=== PATIENT | female | born 1975 | race Caucasian/White ===

== ENCOUNTER 2019-10-25 00:16 | Inpatient (IN) | payer MEDICAID, OTHER, SELFPAY ==
[~2019-10-25] VITALS: Ht 157.5 cm; Wt 58.2 kg
[2019-10-25] VITALS (9 sets, daily range): BP systolic 94–114; BP diastolic 49–68
[2019-10-25] MEDS ORDERED: SODIUM CHLORIDE 0.9% 1,000 ML IV ONE (00:26)
[2019-10-25] MEDS ORDERED: SODIUM CHLORIDE FLUSH 10ML SYR IVF ONE (00:30)
[2019-10-25] MEDS ORDERED: MAGNESIUM SULFATE 1 GM, THIAMINE 100 MG, FOLIC ACID 1 MG, MVI ADULT 10 ML in SODIUM CHL... IV ONE (00:30)
--- NOTE | 2019-10-25 00:37 | NUR ---
BROUGHT IN BY AMBULANCE TRANSFER FROM [facility] C/O UNABLE TO AMBULATE X 2 DAYS DUE TO WEAKNESS. ALSO C/O VAGINAL BLEEDING X 5 MONTHS. HX OF CIRRHOSIS DUE TO ETOH ABUSE. LAST DRINK 1400. DENIES SOB /COUGH. + JAUNDICE. ALERT AND ORIENTED.
--- NOTE | 2019-10-25 00:37 | NUR ---
SEEN AND EXAMINED BY ERP. EKG AND CHEST XRAY DONE. PATIENT RECEIVED 40 PROTONIX 100 MG THIAMINE 5 MG COMPAZINE 1 MG ATIVAN 4 MG ZOFRAN 1 GM ROCEPHIN 2 LITERS OF D5NS 1.6 L NS +250 NS ENROUTE
--- NOTE | 2019-10-25 00:38 | NUR ---
BLOOD AND BLOOD CULTURE X 2 DRAWN BY STAIN MAKER.
--- NOTE | 2019-10-25 00:46 | NUR ---
1 GRAM CALCIUM GIVEN ENROUTE
--- NOTE | 2019-10-25 00:49 | NUR ---
PT SHIVAM [phone]
[2019-10-25 01:01] LABS: MICROSCOPIC INDICATED
[2019-10-25 01:05] LABS: MEAN CORPUSCULAR HEMOGLOBIN 35.9 pg (27.0-34.8); MEAN CORPUSCULAR HGB CONC 33.1 g/dL (32.4-35.8); MEAN PLATELET VOLUME 8.6 fL (7.4-10.4); PLATELET COUNT 53 x10^3/uL (130-400); RED BLOOD COUNT 2.54 x10^6/uL (3.82-5.3); RED CELL DISTRIBUTION WIDTH 19.8 % (9.6-15.2)
[2019-10-25 01:08] LABS: INTERNATIONAL NORMALIZED RATIO 2.15 (0.93-1.1); PROTHROMBIN TIME 22.3 Seconds (9.6-11.5)
[2019-10-25 01:10] LABS: ALANINE AMINOTRANSFERASE 78 U/L (12-78); ALBUMIN 2.3 g/dL (3.4-5.0); ANION GAP 19 mmol/L (5-15); CALCIUM 6.7 mg/dL (8.5-10.1); CHLORIDE 98 mmol/L (98-107)
[2019-10-25 01:22] LABS: ALKALINE PHOSPHATASE 139 U/L (45-117)
[2019-10-25 01:26] LABS: CREATININE 1.08 mg/dL (0.55-1.02)
[2019-10-25 01:28] LABS: BILIRUBIN,TOTAL 25.8 mg/dL (0.2-1.0); TOTAL PROTEIN 5.9 g/dL (6.4-8.2)
[2019-10-25] MEDS ORDERED: LORazepam 2 MG/ML, 1ML ONE (01:44)
[2019-10-25] MEDS ORDERED: PIPERACILLIN/TAZO/PMX 3.375GM 50 ML ONE (01:44)
[2019-10-25] MEDS ORDERED: LACTULOSE 3.3 GM/5 ML ORAL.SOL RC ONE (02:00)
[2019-10-25] MEDS ORDERED: VANCOMYCIN 1,600 MG in SODIUM CHLORIDE 0.9% 250 ML IV ONE (02:00)
[2019-10-25] MEDS ORDERED: LORazepam 2 MG/ML, 1ML IVPush ONE (02:00)
[2019-10-25] MEDS ORDERED: PIPERACILLIN/TAZO/PMX 3.375GM 50 ML IVPB ONE (02:00)
[2019-10-25] MEDS ORDERED: POTASSIUM CHLORIDE 40 MEQ in SODIUM CHLORIDE 0.9% 500 ML IV ONE ×2 (02:00→07:00)
[2019-10-25] MEDS ORDERED: VANCOMYCIN PER PHARMACY MC ONE (02:00)
[2019-10-25 02:05] LABS: BASOPHILS % (AUTO) 0 % (0-1); EOSINOPHILS % (AUTO) 0 % (1-7); LYMPHOCYTES # (AUTO) 0.13 x10^3/uL (1-3.4); LYMPHOCYTES % (AUTO) 2 % (22-44); MD SCAN; MONOCYTES # (AUTO) 0.77 x10^3/uL (0.2-0.8); MONOCYTES % (AUTO) 10 % (2-9); NEUTROPHILS % (AUTO) 89 % (42-75)
--- NOTE | 2019-10-25 02:08 | NUR ---
PATIENT TO CT SCAN.
--- NOTE | 2019-10-25 03:30 | NUR ---
LACTULOSE GIVEN RECTALLY VIA ENEMA. NO DIARRHEA.
--- NOTE | 2019-10-25 03:45 | NUR ---
DR. YOUNG AT BEDSIDE FOR PATIENT EVALUATION.
[2019-10-25] MEDS: SODIUM CHLORIDE 0.9% 1,000 ML IV SCH ×3 (04:00→20:00)
[2019-10-25] MEDS ORDERED: PHARMACY MAY ADJ FOR RENAL FX MC PRN (04:00)
[2019-10-25] MEDS: PIPERACILLIN/TAZO/PMX 3.375GM 50 ML IV SCH ×4 (04:00→22:12)
[2019-10-25] MEDS ORDERED: VANCOMYCIN PER PHARMACY MC PRN (04:00)
[2019-10-25] MEDS ORDERED: PHARMACOKINETIC MONITORING MC PRN (06:00)
[2019-10-25 06:11] LABS: CHLORIDE 102 mmol/L (98-107)
[2019-10-25 06:23] LABS: ANION GAP 16 mmol/L (5-15); CALCIUM 6.7 mg/dL (8.5-10.1)
[2019-10-25] MEDS ORDERED: CALCIUM GLUCONATE 9.2 MEQ in SODIUM CHLORIDE 0.9% 100 ML IV ONE (07:00)
[2019-10-25] MEDS ORDERED: MAGNESIUM SULFATE PMX 2GM/50ML 50 ML IV ONE (07:00)
[2019-10-25] MEDS ORDERED: PANTOPRAZOLE 40 MG IV IVPush SCH (07:30)
[2019-10-25] MEDS ORDERED: PHENOBARBITAL ETOH DETOX PER PHARMACY MC PRN (07:30)
[2019-10-25 07:45] LABS: HCG UR SG > 1.045 (1.003-1.030)
[2019-10-25] MEDS ORDERED: LORazepam 0.5MG TABLET PO PRN (08:00)
[2019-10-25] MEDS ORDERED: LORazepam 1MG TABLET PO PRN ×3 (08:00)
[2019-10-25] MEDS ORDERED: PHYTONADIONE 5 MG TABLET PO ONE (08:00)
[2019-10-25] MEDS ORDERED: LORazepam 2 MG/ML, 1ML IV PRN ×5 (08:00)
[2019-10-25 08:02] LABS: AMPHETAMINE SCREEN, URINE Negative (Negative); BARBITURATE SCREEN, URINE Negative (Negative); BENZODIAZEPINE SCREEN, URINE Negative (Negative); CANNABINOID SCREEN, URINE Negative (Negative); COCAINE SCREEN, URINE Negative (Negative); METHADONE SCREEN, URINE Negative (Negative); OPIATE SCREEN, URINE Negative (Negative)
[2019-10-25] MEDS: DIAZEPAM 10 MG TABLET PO SCH ×3 (09:27→20:34)
[2019-10-25] MEDS: LACTULOSE 10 GM/15 ML UDC PO SCH ×3 (09:27→20:35)
[2019-10-25] MEDS: PROPRANOLOL 10 MG TABLET PO SCH ×5 (09:29→23:00)
[2019-10-25] MEDS ORDERED: LIDOCAINE 1%, 10ML ONE (10:12)
[2019-10-25] MEDS ORDERED: POTASSIUM PHOSPHATE 44 MEQ in SODIUM CHLORIDE 0.9% 500 ML IV ONE (12:30)
[2019-10-25] MEDS ORDERED: ALBUMIN HUMAN 25% 100 ML IV ONE ×2 (12:30→13:30)
[2019-10-25 12:56] LABS: CELLS COUNTED 15
[2019-10-25] MEDS ORDERED: VANCOMYCIN 1,300 MG in SODIUM CHLORIDE 0.9% 250 ML IV SCH (14:00)
[2019-10-25] MEDS: LORazepam 1MG TABLET PO PRN (16:21)
[2019-10-25] MEDS: PANTOPRAZOLE 40 MG IV IVPush SCH (20:34)
[2019-10-26] MEDS: DIAZEPAM 10 MG TABLET PO SCH (02:58)
[2019-10-26 04:25] VITALS: BP 90/63
[2019-10-26 04:52] LABS: ANION GAP 8 mmol/L (5-15); CALCIUM 6.8 mg/dL (8.5-10.1); CHLORIDE 113 mmol/L (98-107); INTERNATIONAL NORMALIZED RATIO 2.48 (0.93-1.1); PROTHROMBIN TIME 25.8 Seconds (9.6-11.5)
[2019-10-26 05:04] LABS: ALANINE AMINOTRANSFERASE 59 U/L (12-78); ALKALINE PHOSPHATASE 86 U/L (45-117)
[2019-10-26 05:09] LABS: CREATININE 0.89 mg/dL (0.55-1.02); TOTAL PROTEIN 5.1 g/dL (6.4-8.2)
[2019-10-26 05:10] LABS: BILIRUBIN,TOTAL 31.6 mg/dL (0.2-1.0)
[2019-10-26] MEDS: PIPERACILLIN/TAZO/PMX 3.375GM 50 ML IV SCH (05:20)
[2019-10-26 05:31] LABS: MEAN CORPUSCULAR HEMOGLOBIN 33.8 pg (27.0-34.8); MEAN CORPUSCULAR HGB CONC 33.8 g/dL (32.4-35.8); MEAN PLATELET VOLUME 9.2 fL (7.4-10.4); RED BLOOD COUNT 3.13 x10^6/uL (3.82-5.3); RED CELL DISTRIBUTION WIDTH 21.5 % (9.6-15.2)
[2019-10-26 05:47] LABS: PLATELET COUNT 42 x10^3/uL (130-400)
[2019-10-26 06:00] LABS: MD YES
[2019-10-26 06:03] LABS: <PLATELET ESTIMATE> DECREASED; <PLT MORPHOLOGY> NORMAL PLT MORPH; ANISOCYTOSIS 1+; BAND#(MANUAL) 0.07 x10^3/uL; BANDS%(MANUAL) 1 % (0-7); EOS#(MANUAL) 0.07 x10^3/uL (0.0-0.4); EOS% (MANUAL) 1 % (1-7); LYMPH#(MANUAL) 0.26 x10^3/uL (1-3.4); LYMPHS% (MANUAL) 4 % (22-44); MONOS#(MANUAL) 0.46 x10^3/uL (0.3-2.7); MONOS% (MANUAL) 7 % (2-9); POLYCHROMASIA 1+; SEG#(MANUAL) 5.66 x10^3/uL (1.8-6.8); SEGS% (MANUAL) 87 % (42-75); TEAR DROPS 1+
[2019-10-26] MEDS: SODIUM CHLORIDE 0.9% 1,000 ML IV SCH (06:14)
[2019-10-26] MEDS: PROPRANOLOL 10 MG TABLET PO SCH ×3 (06:14→20:20)
[2019-10-26] MEDS ORDERED: POTASSIUM PHOSPHATE 44 MEQ in SODIUM CHLORIDE 0.9% 500 ML IV ONE (06:30)
[2019-10-26] MEDS ORDERED: POTASSIUM CHLORIDE 20 MEQ TAB.ER.PRT PO ONE (06:30)
[2019-10-26] MEDS ORDERED: CALCIUM GLUCONATE 9.2 MEQ in SODIUM CHLORIDE 0.9% 100 ML IV ONE (06:30)
[2019-10-26] MEDS: LACTULOSE 10 GM/15 ML UDC PO SCH ×3 (08:36→20:21)
[2019-10-26] MEDS: PANTOPRAZOLE 40 MG IV IVPush SCH ×2 (08:36→20:20)
[2019-10-26] MEDS: DIAZEPAM 5 MG TABLET PO SCH ×3 (08:36→20:20)
[2019-10-26] MEDS: CEFTRIAXONE PMX 1GM/50ML 50 ML IV SCH (12:04)
[2019-10-26] MEDS: PHYTONADIONE 5 MG TABLET PO SCH (12:26)
[2019-10-26 16:30] VITALS: BP 103/68
[2019-10-26] MEDS: PROMETHAZINE 25 MG/ML, 1ML IM PRN (16:59)
[2019-10-26 19:25] VITALS: BP 90/63
[2019-10-27 03:30] VITALS: BP 93/52
[2019-10-27] MEDS: DIAZEPAM 5 MG TABLET PO SCH ×4 (03:51→20:14)
[2019-10-27 05:38] LABS: MEAN CORPUSCULAR HEMOGLOBIN 33.9 pg (27.0-34.8); MEAN CORPUSCULAR HGB CONC 33.8 g/dL (32.4-35.8); MEAN PLATELET VOLUME 9.6 fL (7.4-10.4); PLATELET COUNT 62 x10^3/uL (130-400); RED BLOOD COUNT 3.24 x10^6/uL (3.82-5.3); RED CELL DISTRIBUTION WIDTH 22.5 % (9.6-15.2)
[2019-10-27 05:41] LABS: INTERNATIONAL NORMALIZED RATIO 2.46 (0.93-1.1); PROTHROMBIN TIME 25.6 Seconds (9.6-11.5)
[2019-10-27 05:59] LABS: ALANINE AMINOTRANSFERASE 60 U/L (12-78); ALBUMIN 2.7 g/dL (3.4-5.0); ANION GAP 9 mmol/L (5-15); CALCIUM 7.6 mg/dL (8.5-10.1); CHLORIDE 113 mmol/L (98-107)
[2019-10-27 06:11] LABS: ALKALINE PHOSPHATASE 103 U/L (45-117)
[2019-10-27 06:14] LABS: BASOPHILS % (AUTO) 0 % (0-1); EOSINOPHILS # (AUTO) 0.19 x10^3/uL (0-0.4); EOSINOPHILS % (AUTO) 3 % (1-7); LYMPHOCYTES # (AUTO) 0.53 x10^3/uL (1-3.4); LYMPHOCYTES % (AUTO) 8 % (22-44); MD SCAN; MONOCYTES # (AUTO) 0.87 x10^3/uL (0.2-0.8); MONOCYTES % (AUTO) 12 % (2-9); NEUTROPHILS # (AUTO) 5.39 x10^3/uL (1.8-6.8); NEUTROPHILS % (AUTO) 77 % (42-75)
[2019-10-27 06:15] LABS: CREATININE 1.04 mg/dL (0.55-1.02)
[2019-10-27 06:17] LABS: BILIRUBIN,TOTAL 34.7 mg/dL (0.2-1.0)
[2019-10-27] MEDS ORDERED: POTASSIUM PHOSPHATE 44 MEQ in SODIUM CHLORIDE 0.9% 500 ML IV ONE (06:30)
[2019-10-27] MEDS ORDERED: POTASSIUM CHLORIDE 20 MEQ TAB.ER.PRT PO ONE (06:30)
[2019-10-27 06:57] VITALS: BP 108/75
[2019-10-27] MEDS ORDERED: ALBUMIN HUMAN 25% 100 ML IV ONE (08:00)
[2019-10-27] MEDS: PHYTONADIONE 5 MG TABLET PO SCH (08:59)
[2019-10-27] MEDS: PANTOPRAZOLE 40 MG IV IVPush SCH ×2 (08:59→20:14)
[2019-10-27] MEDS: LACTULOSE 10 GM/15 ML UDC PO SCH ×3 (09:00→20:14)
[2019-10-27] MEDS ORDERED: LIDOCAINE 1%, 10ML ONE (09:06)
[2019-10-27] MEDS: CEFTRIAXONE PMX 1GM/50ML 50 ML IV SCH (11:30)
[2019-10-27] MEDS ORDERED: MEDROXYPROGESTERONE ACETATE 150 MG/ML IM ONE (12:00)
[2019-10-27] MEDS: SPIRONOLACTONE 50 MG TABLET PO SCH ×2 (12:39→20:14)
[2019-10-27] MEDS: FUROSEMIDE 40 MG TABLET PO SCH (12:39)
[2019-10-27 12:57] VITALS: BP 112/76
[2019-10-27 20:58] VITALS: BP 97/65
[2019-10-28 00:07] VITALS: BP 100/62
[2019-10-28] MEDS: DIAZEPAM 5 MG TABLET PO SCH (02:00)
[2019-10-28 04:58] LABS: ALBUMIN 2.8 g/dL (3.4-5.0); ANION GAP 11 mmol/L (5-15); CALCIUM 7.6 mg/dL (8.5-10.1); CHLORIDE 112 mmol/L (98-107)
[2019-10-28 05:13] LABS: ALANINE AMINOTRANSFERASE 47 U/L (12-78); ALKALINE PHOSPHATASE 89 U/L (45-117)
[2019-10-28 05:14] LABS: CREATININE 1.12 mg/dL (0.55-1.02)
[2019-10-28 05:15] LABS: TOTAL PROTEIN 4.8 g/dL (6.4-8.2)
[2019-10-28 05:16] LABS: BILIRUBIN,TOTAL 32.8 mg/dL (0.2-1.0)
[2019-10-28] MEDS: LORazepam 1MG TABLET PO PRN ×2 (06:15→12:17)
[2019-10-28] MEDS ORDERED: POTASSIUM PHOSPHATE 22 MEQ in SODIUM CHLORIDE 0.9% 500 ML IV ONE (06:30)
[2019-10-28] MEDS ORDERED: POTASSIUM CHLORIDE 20 MEQ TAB.ER.PRT PO ONE (06:30)
[2019-10-28 06:52] VITALS: BP 93/61
[2019-10-28] MEDS: LACTULOSE 10 GM/15 ML UDC PO SCH ×3 (07:23→20:49)
[2019-10-28] MEDS: SPIRONOLACTONE 50 MG TABLET PO SCH ×2 (07:24→20:49)
[2019-10-28 07:34] LABS: BASOPHILS # (AUTO) 0.03 x10^3/uL (0-0.1); BASOPHILS % (AUTO) 0 % (0-1); EOSINOPHILS # (AUTO) 0.16 x10^3/uL (0-0.4); EOSINOPHILS % (AUTO) 2 % (1-7); LYMPHOCYTES # (AUTO) 0.72 x10^3/uL (1-3.4); LYMPHOCYTES % (AUTO) 10 % (22-44); MD SCAN; MEAN CORPUSCULAR HEMOGLOBIN 34.6 pg (27.0-34.8); MEAN CORPUSCULAR HGB CONC 33.9 g/dL (32.4-35.8); MEAN PLATELET VOLUME 9.4 fL (7.4-10.4); MONOCYTES # (AUTO) 1.12 x10^3/uL (0.2-0.8); MONOCYTES % (AUTO) 16 % (2-9); NEUTROPHILS # (AUTO) 4.93 x10^3/uL (1.8-6.8); NEUTROPHILS % (AUTO) 71 % (42-75); PLATELET COUNT 72 x10^3/uL (130-400); RED BLOOD COUNT 3.33 x10^6/uL (3.82-5.3); RED CELL DISTRIBUTION WIDTH 22.4 % (9.6-15.2)
[2019-10-28] MEDS: PANTOPRAZOLE 40 MG IV IVPush SCH ×2 (07:59→20:56)
[2019-10-28] MEDS: PHYTONADIONE 5 MG TABLET PO SCH (07:59)
[2019-10-28] MEDS: FUROSEMIDE 40 MG TABLET PO SCH (07:59)
[2019-10-28] MEDS: CEFTRIAXONE PMX 1GM/50ML 50 ML IV SCH (12:06)
[2019-10-28 12:54] VITALS: BP 96/68
--- NOTE | 2019-10-28 19:13 | NUR ---
RAIMUNDO MCKEON Fall Risk Medications present and NOT receiving anticoagulants. Signed: 10/28/19 at 1916 by Prasanna BUTLER
[2019-10-28 19:30] VITALS: BP 120/76
[2019-10-28 20:39] VITALS: BP 102/66
[2019-10-29 02:30] VITALS: BP 98/64
[2019-10-29 04:56] LABS: ALBUMIN 2.6 g/dL (3.4-5.0); ANION GAP 11 mmol/L (5-15); CALCIUM 7.8 mg/dL (8.5-10.1); CHLORIDE 109 mmol/L (98-107)
[2019-10-29 04:58] LABS: INTERNATIONAL NORMALIZED RATIO 2.19 (0.93-1.1); PROTHROMBIN TIME 22.7 Seconds (9.6-11.5)
[2019-10-29 05:07] LABS: ALANINE AMINOTRANSFERASE 42 U/L (12-78); ALKALINE PHOSPHATASE 92 U/L (45-117)
[2019-10-29 05:09] LABS: CREATININE 1.22 mg/dL (0.55-1.02); TOTAL PROTEIN 4.7 g/dL (6.4-8.2)
[2019-10-29 05:12] LABS: BILIRUBIN,TOTAL 34.1 mg/dL (0.2-1.0)
[2019-10-29 07:05] VITALS: BP 96/52
[2019-10-29 10:18] VITALS: BP 105/70
[2019-10-29] MEDS: SPIRONOLACTONE 50 MG TABLET PO SCH ×2 (10:18→22:44)
[2019-10-29] MEDS: POTASSIUM CHLORIDE 20 MEQ TAB.ER.PRT PO SCH ×3 (10:19→22:44)
[2019-10-29] MEDS: LACTULOSE 10 GM/15 ML UDC PO SCH ×3 (10:19→22:44)
[2019-10-29] MEDS: PHYTONADIONE 5 MG TABLET PO SCH (10:19)
[2019-10-29] MEDS: FUROSEMIDE 40 MG TABLET PO SCH (10:20)
[2019-10-29] MEDS: PANTOPRAZOLE 40 MG IV IVPush SCH ×3 (10:20→22:44)
[2019-10-29] MEDS: CEFTRIAXONE PMX 1GM/50ML 50 ML IV SCH ×2 (10:41→13:30)
[2019-10-29 13:50] VITALS: BP 123/71
[2019-10-29] MEDS: LORazepam 1MG TABLET PO PRN (18:31)
[2019-10-29 20:25] VITALS: BP 103/67
[2019-10-30 01:52] VITALS: BP 100/57
[2019-10-30 05:22] LABS: CHLORIDE 105 mmol/L (98-107)
[2019-10-30 05:29] LABS: MEAN CORPUSCULAR HEMOGLOBIN 35.8 pg (27.0-34.8); MEAN CORPUSCULAR HGB CONC 34.6 g/dL (32.4-35.8); RED CELL DISTRIBUTION WIDTH 23.6 % (9.6-15.2)
[2019-10-30 05:39] LABS: ALANINE AMINOTRANSFERASE 40 U/L (12-78); ALBUMIN 2.4 g/dL (3.4-5.0); ALKALINE PHOSPHATASE 96 U/L (45-117); ANION GAP 11 mmol/L (5-15); CALCIUM 7.9 mg/dL (8.5-10.1)
[2019-10-30 05:42] LABS: CREATININE 1.38 mg/dL (0.55-1.02); TOTAL PROTEIN 4.7 g/dL (6.4-8.2)
[2019-10-30 05:44] LABS: BILIRUBIN,TOTAL 33.1 mg/dL (0.2-1.0)
[2019-10-30 05:59] LABS: MD YES; MEAN PLATELET VOLUME 8.9 fL (7.4-10.4); PLATELET COUNT 75 x10^3/uL (130-400)
[2019-10-30 06:06] LABS: ANISOCYTOSIS 1+; BAND#(MANUAL) 0.13 x10^3/uL; BANDS%(MANUAL) 2 % (0-7); EOS#(MANUAL) 0.06 x10^3/uL (0.0-0.4); EOS% (MANUAL) 1 % (1-7); LYMPH#(MANUAL) 0.69 x10^3/uL (1-3.4); LYMPHS% (MANUAL) 11 % (22-44); MONOS#(MANUAL) 1.13 x10^3/uL (0.3-2.7); MONOS% (MANUAL) 18 % (2-9); SEG#(MANUAL) 4.28 x10^3/uL (1.8-6.8); SEGS% (MANUAL) 68 % (42-75)
[2019-10-30 06:07] LABS: <PLATELET ESTIMATE> DECREASED; <PLT MORPHOLOGY> NORMAL PLT MORPH; POLYCHROMASIA 1+
[2019-10-30] MEDS ORDERED: MAGNESIUM SULFATE PMX 4GM/100M 100 ML IV ONE (07:00)
[2019-10-30 07:58] VITALS: BP 100/67
[2019-10-30] MEDS: LACTULOSE 10 GM/15 ML UDC PO SCH ×3 (08:27→20:00)
[2019-10-30] MEDS: FUROSEMIDE 40 MG TABLET PO SCH (08:28)
[2019-10-30] MEDS: MAGNESIUM OXIDE 400 MG TABLET PO SCH ×2 (08:28→20:00)
[2019-10-30] MEDS: PHYTONADIONE 5 MG TABLET PO SCH (08:28)
[2019-10-30] MEDS: POTASSIUM CHLORIDE 20 MEQ TAB.ER.PRT PO SCH ×3 (08:28→20:00)
[2019-10-30] MEDS: PANTOPRAZOLE 40 MG IV IVPush SCH ×2 (08:29→19:59)
[2019-10-30] MEDS: SPIRONOLACTONE 50 MG TABLET PO SCH ×2 (08:29→20:00)
[2019-10-30] MEDS: CEFTRIAXONE PMX 1GM/50ML 50 ML IV SCH (13:30)
[2019-10-30 14:21] VITALS: BP 122/69
[2019-10-30 18:41] VITALS: BP 108/71
[2019-10-31 00:01] VITALS: BP 110/73
[2019-10-31] MEDS: POTASSIUM CHLORIDE 20 MEQ TAB.ER.PRT PO SCH ×4 (00:39→20:40)
[2019-10-31 06:11] LABS: ANION GAP 12 mmol/L (5-15); CHLORIDE 104 mmol/L (98-107)
[2019-10-31 06:18] LABS: CREATININE 1.39 mg/dL (0.55-1.02)
[2019-10-31 07:22] VITALS: BP 98/52
[2019-10-31] MEDS: PHYTONADIONE 5 MG TABLET PO SCH (08:27)
[2019-10-31] MEDS: LACTULOSE 10 GM/15 ML UDC PO SCH (08:27)
[2019-10-31] MEDS: PANTOPRAZOLE 40 MG IV IVPush SCH ×2 (08:27→20:40)
[2019-10-31] MEDS: FUROSEMIDE 40 MG TABLET PO SCH (08:28)
[2019-10-31] MEDS: MAGNESIUM OXIDE 400 MG TABLET PO SCH ×2 (08:28→20:40)
[2019-10-31] MEDS: SPIRONOLACTONE 50 MG TABLET PO SCH ×2 (08:28→20:41)
[2019-10-31 13:04] VITALS: BP 106/68
[2019-10-31] MEDS: CEFTRIAXONE PMX 1GM/50ML 50 ML IV SCH (13:55)
[2019-10-31] MEDS: LACTOBACILLUS CHEW TABLET PO SCH ×2 (16:46→20:40)
[2019-10-31 19:11] VITALS: BP 100/66
[2019-10-31] MEDS: OXYcodone IR 5MG TABLET PO PRN (22:55)
[2019-11-01 00:59] VITALS: BP 93/56
[2019-11-01] MEDS: POTASSIUM CHLORIDE 20 MEQ TAB.ER.PRT PO SCH ×3 (04:29→20:06)
[2019-11-01] MEDS: LACTOBACILLUS CHEW TABLET PO SCH ×4 (04:31→20:06)
[2019-11-01] MEDS: OXYcodone IR 5MG TABLET PO PRN ×3 (04:36→20:07)
[2019-11-01 05:37] LABS: ANION GAP 11 mmol/L (5-15); CHLORIDE 103 mmol/L (98-107)
[2019-11-01 05:39] LABS: CALCIUM 8.3 mg/dL (8.5-10.1)
[2019-11-01 06:52] LABS: CREATININE 1.43 mg/dL (0.55-1.02)
[2019-11-01 07:16] VITALS: BP 113/74
[2019-11-01] MEDS ORDERED: LACTULOSE 10 GM/15 ML UDC PO SCH (09:00)
[2019-11-01] MEDS: PHYTONADIONE 5 MG TABLET PO SCH (09:07)
[2019-11-01] MEDS: SPIRONOLACTONE 50 MG TABLET PO SCH ×2 (09:07→20:07)
[2019-11-01] MEDS: MAGNESIUM OXIDE 400 MG TABLET PO SCH ×2 (09:07→20:07)
[2019-11-01] MEDS: FUROSEMIDE 40 MG TABLET PO SCH (09:07)
[2019-11-01] MEDS: PANTOPRAZOLE 40 MG IV IVPush SCH ×2 (09:07→20:06)
[2019-11-01 12:23] VITALS: BP 117/75
[2019-11-01] MEDS ORDERED: MAGNESIUM SULFATE PMX 2GM/50ML 50 ML IV ONE (17:00)
[2019-11-01 18:54] VITALS: BP 106/66
[2019-11-01] MEDS: THIAMINE 100MG TABLET PO SCH (20:06)
[2019-11-02 01:05] VITALS: BP 105/69
[2019-11-02 04:37] LABS: ANION GAP 10 mmol/L (5-15); CALCIUM 7.9 mg/dL (8.5-10.1); CHLORIDE 100 mmol/L (98-107)
[2019-11-02 04:49] LABS: MEAN CORPUSCULAR HEMOGLOBIN 35.5 pg (27.0-34.8); MEAN CORPUSCULAR HGB CONC 34.3 g/dL (32.4-35.8); MEAN PLATELET VOLUME 8.8 fL (7.4-10.4); PLATELET COUNT 120 x10^3/uL (130-400); RED BLOOD COUNT 2.94 x10^6/uL (3.82-5.3); RED CELL DISTRIBUTION WIDTH 22.9 % (9.6-15.2)
[2019-11-02 05:51] LABS: MD YES
[2019-11-02 05:52] LABS: BAND#(MANUAL) 0.09 x10^3/uL; BANDS%(MANUAL) 1 % (0-7); EOS#(MANUAL) 0.26 x10^3/uL (0.0-0.4); EOS% (MANUAL) 3 % (1-7)
[2019-11-02 05:53] LABS: ANISOCYTOSIS 1+; LYMPH#(MANUAL) 0.35 x10^3/uL (1-3.4); LYMPHS% (MANUAL) 4 % (22-44); MONOS#(MANUAL) 1.67 x10^3/uL (0.3-2.7); MONOS% (MANUAL) 19 % (2-9); POLYCHROMASIA 1+; SEG#(MANUAL) 6.42 x10^3/uL (1.8-6.8); SEGS% (MANUAL) 73 % (42-75)
[2019-11-02 05:54] LABS: <PLATELET ESTIMATE> DECREASED; <PLT MORPHOLOGY> NORMAL PLT MORPH; ECHINOCYTES 1+; TOXIC GRAN 1+
[2019-11-02 07:24] VITALS: BP 99/59
[2019-11-02] MEDS ORDERED: POTASSIUM CHLORIDE 20 MEQ TAB.ER.PRT PO ONE (08:30)
[2019-11-02] MEDS ORDERED: POTASSIUM CHLORIDE 10% 40 MEQ/30 ML UDC ONE (08:55)
[2019-11-02] MEDS: FOLIC ACID 1 MG TABLET PO SCH (09:03)
[2019-11-02] MEDS: PHYTONADIONE 5 MG TABLET PO SCH (09:03)
[2019-11-02] MEDS: LACTOBACILLUS CHEW TABLET PO SCH ×4 (09:04→20:32)
[2019-11-02] MEDS: SPIRONOLACTONE 50 MG TABLET PO SCH ×2 (09:04→20:32)
[2019-11-02] MEDS: THIAMINE 100MG TABLET PO SCH ×2 (09:04→20:32)
[2019-11-02] MEDS: MAGNESIUM OXIDE 400 MG TABLET PO SCH ×2 (09:04→20:32)
[2019-11-02] MEDS: FUROSEMIDE 40 MG TABLET PO SCH (09:04)
[2019-11-02] MEDS: MULTIVITAMIN 1 TABLET PO SCH (09:04)
[2019-11-02] MEDS: PANTOPRAZOLE 40 MG IV IVPush SCH ×2 (09:04→19:32)
[2019-11-02] MEDS: OXYcodone IR 5MG TABLET PO PRN ×3 (09:12→20:32)
[2019-11-02] MEDS: POTASSIUM CHLORIDE 20 MEQ TAB.ER.PRT PO SCH (09:13)
[2019-11-02 12:12] VITALS: BP 93/54
[2019-11-02 15:46] VITALS: BP 97/68
[2019-11-02 19:25] VITALS: BP 100/64
[2019-11-02] MEDS: RIFAXIMIN 550 MG TABLET PO SCH (21:06)
[2019-11-03 02:39] VITALS: BP 93/54
[2019-11-03] MEDS: OXYcodone IR 5MG TABLET PO PRN ×4 (05:38→20:44)
[2019-11-03] MEDS: LACTOBACILLUS CHEW TABLET PO SCH ×4 (05:38→20:43)
[2019-11-03 09:10] VITALS: BP 105/66
[2019-11-03] MEDS: PANTOPRAZOLE 40 MG IV IVPush SCH (10:27)
[2019-11-03] MEDS: FUROSEMIDE 40 MG TABLET PO SCH (10:27)
[2019-11-03] MEDS: THIAMINE 100MG TABLET PO SCH ×2 (10:27→20:43)
[2019-11-03] MEDS: PHYTONADIONE 5 MG TABLET PO SCH (10:27)
[2019-11-03] MEDS: MULTIVITAMIN 1 TABLET PO SCH (10:28)
[2019-11-03] MEDS: MAGNESIUM OXIDE 400 MG TABLET PO SCH ×2 (10:28→20:43)
[2019-11-03] MEDS: SPIRONOLACTONE 50 MG TABLET PO SCH ×2 (10:28→20:43)
[2019-11-03] MEDS: FOLIC ACID 1 MG TABLET PO SCH (10:28)
[2019-11-03] MEDS: RIFAXIMIN 550 MG TABLET PO SCH ×2 (10:28→20:43)
--- NOTE | 2019-11-03 11:16 | NUR ---
initiated green nursing activity sheet: up to chair for meal walk 1-3 times a day in hallway with walker EPIFANIO Pt and RN agreed. Addendum: 11/03/19 at 1118 by Concepción Winters PT Amended: Links added.
[2019-11-03] MEDS: PROMETHAZINE 25 MG/ML, 1ML IM PRN (13:24)
[2019-11-03 13:59] VITALS: BP 92/60
[2019-11-03 18:53] VITALS: BP 99/63
[2019-11-03] MEDS: PANTOPRAZOLE 40MG TABLET PO SCH (20:43)
[2019-11-04 02:21] VITALS: BP 97/60
[2019-11-04 04:50] LABS: ANION GAP 11 mmol/L (5-15); CALCIUM 7.7 mg/dL (8.5-10.1); CHLORIDE 94 mmol/L (98-107)
[2019-11-04 04:52] LABS: CREATININE 2.14 mg/dL (0.55-1.02)
[2019-11-04] MEDS: LACTOBACILLUS CHEW TABLET PO SCH ×4 (06:27→20:24)
[2019-11-04] MEDS: PANTOPRAZOLE 40MG TABLET PO SCH ×2 (06:27→16:29)
[2019-11-04 09:26] LABS: BASOPHILS % (AUTO) 0 % (0-1); EOSINOPHILS % (AUTO) 0 % (1-7); LYMPHOCYTES # (AUTO) 0.35 x10^3/uL (1-3.4); LYMPHOCYTES % (AUTO) 3 % (22-44); MD NO; MEAN PLATELET VOLUME 7.8 fL (7.4-10.4); MONOCYTES % (AUTO) 12 % (2-9); NEUTROPHILS # (AUTO) 8.96 x10^3/uL (1.8-6.8); NEUTROPHILS % (AUTO) 84 % (42-75); PLATELET COUNT 136 x10^3/uL (130-400)
[2019-11-04 09:33] LABS: INTERNATIONAL NORMALIZED RATIO 1.74 (0.93-1.1)
[2019-11-04 09:37] VITALS: BP 95/60
[2019-11-04 09:47] LABS: BILIRUBIN,INDIRECT 6.8 mg/dL (0.0-2.0)
[2019-11-04] MEDS: LACTULOSE 10 GM/15 ML UDC PO SCH (09:47)
[2019-11-04] MEDS: POTASSIUM CHLORIDE 20 MEQ TAB.ER.PRT PO SCH ×2 (09:47→16:29)
[2019-11-04] MEDS: FUROSEMIDE 40 MG TABLET PO SCH (09:47)
[2019-11-04] MEDS: OXYcodone IR 5MG TABLET PO PRN ×3 (09:48→23:29)
[2019-11-04] MEDS: MULTIVITAMIN 1 TABLET PO SCH (09:48)
[2019-11-04] MEDS: THIAMINE 100MG TABLET PO SCH ×2 (09:48→20:24)
[2019-11-04] MEDS: FOLIC ACID 1 MG TABLET PO SCH (09:48)
[2019-11-04] MEDS: RIFAXIMIN 550 MG TABLET PO SCH ×2 (09:48→20:24)
[2019-11-04] MEDS: SPIRONOLACTONE 50 MG TABLET PO SCH ×2 (09:49→20:24)
[2019-11-04] MEDS: MAGNESIUM OXIDE 400 MG TABLET PO SCH ×2 (09:49→20:24)
[2019-11-04 09:51] LABS: BILIRUBIN, DIRECT 26.2 mg/dL (0.1-0.2)
[2019-11-04] MEDS ORDERED: SODIUM CHLORIDE 0.9% 1,000 ML IV SCH (10:00)
[2019-11-04] MEDS: ALBUMIN HUMAN 25% 50 ML IV SCH ×2 (12:48→20:24)
[2019-11-04] MEDS: PROMETHAZINE 25 MG/ML, 1ML IM PRN (12:55)
[2019-11-04 13:52] VITALS: BP 101/67
[2019-11-04 19:01] VITALS: BP 100/64
[2019-11-05 02:10] VITALS: BP 106/69
[2019-11-05 04:59] LABS: ALBUMIN 2.6 g/dL (3.4-5.0); ANION GAP 13 mmol/L (5-15); CALCIUM 7.7 mg/dL (8.5-10.1); CHLORIDE 98 mmol/L (98-107)
[2019-11-05] MEDS: ALBUMIN HUMAN 25% 50 ML IV SCH (05:01)
[2019-11-05 05:05] LABS: MEAN CORPUSCULAR HEMOGLOBIN 34.9 pg (27.0-34.8); MEAN CORPUSCULAR HGB CONC 33.8 g/dL (32.4-35.8); PLATELET COUNT 148 x10^3/uL (130-400); RED BLOOD COUNT 2.77 x10^6/uL (3.82-5.3); RED CELL DISTRIBUTION WIDTH 21.3 % (9.6-15.2)
[2019-11-05 05:15] LABS: ALANINE AMINOTRANSFERASE 41 U/L (12-78); ALKALINE PHOSPHATASE 140 U/L (45-117)
[2019-11-05 05:22] LABS: TOTAL PROTEIN 5.2 g/dL (6.4-8.2)
[2019-11-05 05:23] LABS: BILIRUBIN,TOTAL 37.4 mg/dL (0.2-1.0)
[2019-11-05] MEDS ORDERED: POTASSIUM CHLORIDE 40 MEQ in SODIUM CHLORIDE 0.9% 500 ML IV ONE (05:30)
[2019-11-05 05:59] LABS: BASOPHILS # (AUTO) 0.02 x10^3/uL (0-0.1); BASOPHILS % (AUTO) 0 % (0-1); EOSINOPHILS % (AUTO) 0 % (1-7); LYMPHOCYTES # (AUTO) 0.48 x10^3/uL (1-3.4); LYMPHOCYTES % (AUTO) 5 % (22-44); MD SCAN; MONOCYTES # (AUTO) 1.11 x10^3/uL (0.2-0.8); MONOCYTES % (AUTO) 11 % (2-9); NEUTROPHILS # (AUTO) 8.11 x10^3/uL (1.8-6.8); NEUTROPHILS % (AUTO) 83 % (42-75)
[2019-11-05] MEDS: PANTOPRAZOLE 40MG TABLET PO SCH ×2 (06:05→16:51)
[2019-11-05] MEDS: LACTOBACILLUS CHEW TABLET PO SCH ×4 (06:05→20:10)
[2019-11-05 06:27] VITALS: BP 107/67
[2019-11-05] MEDS: MULTIVITAMIN 1 TABLET PO SCH (07:52)
[2019-11-05] MEDS: THIAMINE 100MG TABLET PO SCH ×2 (07:53→20:10)
[2019-11-05] MEDS: FOLIC ACID 1 MG TABLET PO SCH (07:53)
[2019-11-05] MEDS: MAGNESIUM OXIDE 400 MG TABLET PO SCH ×2 (07:56→20:10)
[2019-11-05] MEDS: RIFAXIMIN 550 MG TABLET PO SCH ×2 (08:00→20:10)
[2019-11-05] MEDS: LACTULOSE 10 GM/15 ML UDC PO SCH (08:00)
[2019-11-05] MEDS: POTASSIUM CHLORIDE 20 MEQ TAB.ER.PRT PO SCH ×2 (08:02→16:46)
[2019-11-05] MEDS: OXYcodone IR 5MG TABLET PO PRN ×2 (08:18→17:01)
[2019-11-05] MEDS ORDERED: LIDOCAINE 1%, 10ML ONE (10:48)
[2019-11-05 10:50] VITALS: BP 110/71
[2019-11-05 12:24] VITALS: BP 98/62
[2019-11-05] MEDS: MIDODRINE 5 MG TABLET PO SCH ×3 (12:48→20:10)
[2019-11-05 12:50] LABS: ANION GAP 12 mmol/L (5-15); CALCIUM 8.1 mg/dL (8.5-10.1); CHLORIDE 100 mmol/L (98-107)
[2019-11-05 12:54] LABS: CREATININE 2.13 mg/dL (0.55-1.02)
[2019-11-05 19:10] VITALS: BP 98/64
[2019-11-06 01:25] VITALS: BP 95/56
[2019-11-06 04:55] LABS: BASOPHILS # (AUTO) 0.03 x10^3/uL (0-0.1); BASOPHILS % (AUTO) 0 % (0-1); EOSINOPHILS # (AUTO) 0.03 x10^3/uL (0-0.4); EOSINOPHILS % (AUTO) 0 % (1-7); LYMPHOCYTES # (AUTO) 0.51 x10^3/uL (1-3.4); LYMPHOCYTES % (AUTO) 6 % (22-44); MD NO; MEAN CORPUSCULAR HEMOGLOBIN 34.8 pg (27.0-34.8); MONOCYTES # (AUTO) 1.11 x10^3/uL (0.2-0.8); MONOCYTES % (AUTO) 12 % (2-9); NEUTROPHILS # (AUTO) 7.55 x10^3/uL (1.8-6.8); NEUTROPHILS % (AUTO) 82 % (42-75); PLATELET COUNT 149 x10^3/uL (130-400); RED CELL DISTRIBUTION WIDTH 21.2 % (9.6-15.2)
[2019-11-06 05:03] LABS: CALCIUM 7.9 mg/dL (8.5-10.1); CHLORIDE 99 mmol/L (98-107)
[2019-11-06] MEDS: LACTOBACILLUS CHEW TABLET PO SCH ×4 (05:14→20:06)
[2019-11-06] MEDS: PANTOPRAZOLE 40MG TABLET PO SCH ×2 (05:14→17:34)
[2019-11-06 05:17] LABS: ALANINE AMINOTRANSFERASE 38 U/L (12-78); ALBUMIN 2.3 g/dL (3.4-5.0); ALKALINE PHOSPHATASE 130 U/L (45-117); ANION GAP 10 mmol/L (5-15)
[2019-11-06 05:22] LABS: CREATININE 1.96 mg/dL (0.55-1.02)
[2019-11-06 05:24] LABS: BILIRUBIN,TOTAL 34.3 mg/dL (0.2-1.0); TOTAL PROTEIN 4.8 g/dL (6.4-8.2)
[2019-11-06 06:36] VITALS: BP 93/58
[2019-11-06] MEDS: LACTULOSE 10 GM/15 ML UDC PO SCH (08:39)
[2019-11-06] MEDS: FOLIC ACID 1 MG TABLET PO SCH (08:40)
[2019-11-06] MEDS: MULTIVITAMIN 1 TABLET PO SCH (08:40)
[2019-11-06] MEDS: MIDODRINE 5 MG TABLET PO SCH ×3 (08:40→20:06)
[2019-11-06] MEDS: POTASSIUM CHLORIDE 20 MEQ TAB.ER.PRT PO SCH ×4 (08:40→20:06)
[2019-11-06] MEDS: MAGNESIUM OXIDE 400 MG TABLET PO SCH ×2 (08:41→20:06)
[2019-11-06] MEDS: THIAMINE 100MG TABLET PO SCH ×2 (08:41→20:06)
[2019-11-06] MEDS: RIFAXIMIN 550 MG TABLET PO SCH ×2 (08:53→20:06)
[2019-11-06] MEDS: OXYcodone IR 5MG TABLET PO PRN ×2 (08:54→17:57)
[2019-11-06 12:14] VITALS: BP 89/54
[2019-11-06] MEDS: PROMETHAZINE 25 MG/ML, 1ML IM PRN (18:03)
[2019-11-06 19:02] VITALS: BP 98/62
[2019-11-07 01:35] VITALS: BP 103/60
[2019-11-07 04:41] LABS: ALBUMIN 2.2 g/dL (3.4-5.0); ANION GAP 9 mmol/L (5-15); CALCIUM 7.8 mg/dL (8.5-10.1); CHLORIDE 103 mmol/L (98-107)
[2019-11-07 04:55] LABS: ALANINE AMINOTRANSFERASE 41 U/L (12-78); ALKALINE PHOSPHATASE 148 U/L (45-117)
[2019-11-07 04:56] LABS: CREATININE 1.93 mg/dL (0.55-1.02); TOTAL PROTEIN 4.8 g/dL (6.4-8.2)
[2019-11-07 04:58] LABS: BILIRUBIN,TOTAL 33.8 mg/dL (0.2-1.0)
[2019-11-07 05:12] LABS: MEAN CORPUSCULAR HEMOGLOBIN 35.1 pg (27.0-34.8); MEAN CORPUSCULAR HGB CONC 34.4 g/dL (32.4-35.8); MEAN PLATELET VOLUME 8.5 fL (7.4-10.4); PLATELET COUNT 155 x10^3/uL (130-400); RED BLOOD COUNT 2.77 x10^6/uL (3.82-5.3); RED CELL DISTRIBUTION WIDTH 21.1 % (9.6-15.2)
[2019-11-07 05:48] LABS: ANISOCYTOSIS 1+; BASOPHILS # (AUTO) 0.04 x10^3/uL (0-0.1); BASOPHILS % (AUTO) 0 % (0-1); EOSINOPHILS # (AUTO) 0.15 x10^3/uL (0-0.4); EOSINOPHILS % (AUTO) 2 % (1-7); LYMPHOCYTES # (AUTO) 0.51 x10^3/uL (1-3.4); LYMPHOCYTES % (AUTO) 5 % (22-44); MD MORPH REVIEW ONLY; MONOCYTES # (AUTO) 1.11 x10^3/uL (0.2-0.8); MONOCYTES % (AUTO) 11 % (2-9); NEUTROPHILS # (AUTO) 8.39 x10^3/uL (1.8-6.8); NEUTROPHILS % (AUTO) 82 % (42-75)
[2019-11-07 05:49] LABS: <PLATELET ESTIMATE> ADEQUATE; <PLT MORPHOLOGY> NORMAL PLT MORPH; ACANTHOCYTES 1+; ECHINOCYTES 1+; TOXIC GRAN 1+
[2019-11-07] MEDS: PANTOPRAZOLE 40MG TABLET PO SCH ×2 (06:14→16:09)
[2019-11-07] MEDS: LACTOBACILLUS CHEW TABLET PO SCH ×4 (06:14→21:19)
[2019-11-07] MEDS: OXYcodone IR 5MG TABLET PO PRN ×3 (06:14→18:31)
[2019-11-07 07:04] VITALS: BP 92/55
[2019-11-07] MEDS: LACTULOSE 10 GM/15 ML UDC PO SCH (08:48)
[2019-11-07] MEDS: RIFAXIMIN 550 MG TABLET PO SCH ×2 (08:49→21:19)
[2019-11-07] MEDS: FOLIC ACID 1 MG TABLET PO SCH (08:49)
[2019-11-07] MEDS: MULTIVITAMIN 1 TABLET PO SCH (08:49)
[2019-11-07] MEDS: MIDODRINE 5 MG TABLET PO SCH ×3 (08:49→21:19)
[2019-11-07] MEDS: MAGNESIUM OXIDE 400 MG TABLET PO SCH ×2 (08:49→21:19)
[2019-11-07] MEDS: THIAMINE 100MG TABLET PO SCH ×2 (08:49→21:19)
[2019-11-07 12:16] VITALS: BP 90/57
[2019-11-07 14:39] LABS: INTERNATIONAL NORMALIZED RATIO 1.64 (0.93-1.1)
[2019-11-07 19:25] VITALS: BP 101/66
[2019-11-08] MEDS: OXYcodone IR 5MG TABLET PO PRN ×4 (00:22→23:24)
[2019-11-08 00:26] VITALS: BP 104/63
[2019-11-08] MEDS ORDERED: PHYTONADIONE 5 MG TABLET PO ONE (04:00)
[2019-11-08 04:21] LABS: INTERNATIONAL NORMALIZED RATIO 1.68 (0.93-1.1); PROTHROMBIN TIME 17.4 Seconds (9.6-11.5)
[2019-11-08 04:23] LABS: CHLORIDE 101 mmol/L (98-107)
[2019-11-08 04:24] LABS: ALANINE AMINOTRANSFERASE 42 U/L (12-78); ALBUMIN 2.1 g/dL (3.4-5.0); ANION GAP 11 mmol/L (5-15)
[2019-11-08 04:30] LABS: BASOPHILS # (AUTO) 0.04 x10^3/uL (0-0.1); BASOPHILS % (AUTO) 0 % (0-1); EOSINOPHILS # (AUTO) 0.12 x10^3/uL (0-0.4); EOSINOPHILS % (AUTO) 1 % (1-7); LYMPHOCYTES # (AUTO) 0.56 x10^3/uL (1-3.4); LYMPHOCYTES % (AUTO) 6 % (22-44); MD NO; MEAN CORPUSCULAR HGB CONC 34.4 g/dL (32.4-35.8); MEAN PLATELET VOLUME 8.1 fL (7.4-10.4); MONOCYTES # (AUTO) 1.07 x10^3/uL (0.2-0.8); MONOCYTES % (AUTO) 11 % (2-9); NEUTROPHILS # (AUTO) 7.82 x10^3/uL (1.8-6.8); NEUTROPHILS % (AUTO) 81 % (42-75); PLATELET COUNT 158 x10^3/uL (130-400); RED BLOOD COUNT 2.81 x10^6/uL (3.82-5.3); RED CELL DISTRIBUTION WIDTH 20.7 % (9.6-15.2)
[2019-11-08 04:35] LABS: ALKALINE PHOSPHATASE 169 U/L (45-117)
[2019-11-08] MEDS: PANTOPRAZOLE 40MG TABLET PO SCH ×2 (05:06→16:11)
[2019-11-08] MEDS: LACTOBACILLUS CHEW TABLET PO SCH ×4 (05:06→20:46)
[2019-11-08 05:34] LABS: CREATININE 1.87 mg/dL (0.55-1.02)
[2019-11-08 05:36] LABS: BILIRUBIN,TOTAL 31.9 mg/dL (0.2-1.0)
[2019-11-08 07:57] VITALS: BP 93/60
[2019-11-08] MEDS: LACTULOSE 10 GM/15 ML UDC PO SCH (10:34)
[2019-11-08] MEDS: MAGNESIUM OXIDE 400 MG TABLET PO SCH ×2 (10:35→20:46)
[2019-11-08] MEDS: THIAMINE 100MG TABLET PO SCH ×2 (10:35→20:46)
[2019-11-08] MEDS: MIDODRINE 5 MG TABLET PO SCH ×3 (10:35→20:47)
[2019-11-08] MEDS: FOLIC ACID 1 MG TABLET PO SCH (10:35)
[2019-11-08] MEDS: RIFAXIMIN 550 MG TABLET PO SCH ×2 (10:35→20:46)
[2019-11-08] MEDS: MULTIVITAMIN 1 TABLET PO SCH (10:35)
[2019-11-08 14:56] VITALS: BP 94/60
[2019-11-08 19:19] VITALS: BP 102/67
[2019-11-08] MEDS: POTASSIUM ACID PHOSPHATE 500 MG TABLET.SOL PO SCH (20:46)
[2019-11-09 00:56] VITALS: BP 96/60
[2019-11-09] MEDS: LACTOBACILLUS CHEW TABLET PO SCH ×4 (06:35→19:54)
[2019-11-09] MEDS: PANTOPRAZOLE 40MG TABLET PO SCH ×2 (06:35→15:52)
[2019-11-09] MEDS: OXYcodone IR 5MG TABLET PO PRN ×3 (06:36→20:05)
[2019-11-09 06:44] VITALS: BP 91/58
[2019-11-09] MEDS: FOLIC ACID 1 MG TABLET PO SCH (08:35)
[2019-11-09] MEDS: POTASSIUM ACID PHOSPHATE 500 MG TABLET.SOL PO SCH ×2 (08:35→19:54)
[2019-11-09] MEDS: RIFAXIMIN 550 MG TABLET PO SCH ×2 (08:35→19:54)
[2019-11-09] MEDS: MULTIVITAMIN 1 TABLET PO SCH (08:35)
[2019-11-09] MEDS: MIDODRINE 5 MG TABLET PO SCH ×3 (08:36→19:54)
[2019-11-09] MEDS: THIAMINE 100MG TABLET PO SCH ×2 (08:36→19:54)
[2019-11-09] MEDS: MAGNESIUM OXIDE 400 MG TABLET PO SCH (08:36)
[2019-11-09] MEDS: LACTULOSE 10 GM/15 ML UDC PO SCH (08:36)
[2019-11-09] MEDS ORDERED: LACTOBACILLUS CHEW TABLET PO SCH (09:00)
[2019-11-09 12:21] VITALS: BP 97/63
[2019-11-09 19:41] VITALS: BP 99/66
[2019-11-09 19:53] VITALS: BP 103/68
[2019-11-10 02:00] VITALS: BP 128/78
[2019-11-10] MEDS: LACTOBACILLUS CHEW TABLET PO SCH ×4 (05:37→20:12)
[2019-11-10] MEDS: PANTOPRAZOLE 40MG TABLET PO SCH ×2 (05:37→16:30)
[2019-11-10] MEDS: OXYcodone IR 5MG TABLET PO PRN ×3 (05:42→18:49)
[2019-11-10 05:58] LABS: CHLORIDE 100 mmol/L (98-107)
[2019-11-10 06:08] LABS: % IRON SATURATION 37 % (20-55); ANION GAP 12 mmol/L (5-15); CALCIUM 8.3 mg/dL (8.5-10.1); IRON LEVEL 49 mcg/dL (50-170); TOTAL IRON BINDING CAPACITY 134 mcg/dL (250-450)
[2019-11-10 06:10] LABS: CREATININE 2.11 mg/dL (0.55-1.02)
[2019-11-10 06:59] VITALS: BP 98/61
[2019-11-10 08:35] LABS: INTERNATIONAL NORMALIZED RATIO 1.56 (0.93-1.1); PROTHROMBIN TIME 16.1 Seconds (9.6-11.5)
[2019-11-10] MEDS: MAGNESIUM OXIDE 400 MG TABLET PO SCH (09:17)
[2019-11-10] MEDS: FOLIC ACID 1 MG TABLET PO SCH (09:17)
[2019-11-10] MEDS: MIDODRINE 5 MG TABLET PO SCH ×3 (09:17→20:13)
[2019-11-10] MEDS: POTASSIUM ACID PHOSPHATE 500 MG TABLET.SOL PO SCH ×2 (09:17→20:13)
[2019-11-10] MEDS: THIAMINE 100MG TABLET PO SCH ×2 (09:17→20:13)
[2019-11-10] MEDS: LACTULOSE 10 GM/15 ML UDC PO SCH (09:17)
[2019-11-10] MEDS: RIFAXIMIN 550 MG TABLET PO SCH ×2 (09:17→20:13)
[2019-11-10] MEDS: MULTIVITAMIN 1 TABLET PO SCH (09:17)
[2019-11-10] MEDS: PROMETHAZINE 25 MG/ML, 1ML IM PRN ×2 (10:09→16:36)
[2019-11-10 12:13] VITALS: BP 100/65
[2019-11-10] MEDS: ALBUMIN HUMAN 25% 100 ML IV SCH (16:30)
[2019-11-10 19:16] VITALS: BP 96/62
[2019-11-11] MEDS: ALBUMIN HUMAN 25% 100 ML IV SCH ×3 (00:35→21:56)
[2019-11-11 01:15] VITALS: BP 98/65
[2019-11-11] MEDS: OXYcodone IR 5MG TABLET PO PRN ×4 (02:49→21:33)
[2019-11-11] MEDS: LACTOBACILLUS CHEW TABLET PO SCH ×4 (05:46→21:33)
[2019-11-11] MEDS: PANTOPRAZOLE 40MG TABLET PO SCH ×2 (05:46→15:38)
[2019-11-11 05:48] LABS: ANION GAP 13 mmol/L (5-15); CALCIUM 8.1 mg/dL (8.5-10.1); CHLORIDE 102 mmol/L (98-107)
[2019-11-11 05:53] LABS: CREATININE 2.31 mg/dL (0.55-1.02)
[2019-11-11 07:26] VITALS: BP 104/66
[2019-11-11] MEDS ORDERED: OCTREOTIDE 1,250 MCG in SODIUM CHLORIDE 0.9% 247.5 ML IV PRN (08:00)
[2019-11-11] MEDS ORDERED: POTASSIUM CHLORIDE 20 MEQ TAB.ER.PRT PO ONE (08:00)
[2019-11-11] MEDS ORDERED: FUROSEMIDE 20 MG TABLET PO SCH (09:00)
[2019-11-11] MEDS: MULTIVITAMIN 1 TABLET PO SCH (09:31)
[2019-11-11] MEDS: RIFAXIMIN 550 MG TABLET PO SCH ×2 (09:31→21:33)
[2019-11-11] MEDS: MAGNESIUM OXIDE 400 MG TABLET PO SCH (09:31)
[2019-11-11] MEDS: POTASSIUM ACID PHOSPHATE 500 MG TABLET.SOL PO SCH ×2 (09:31→21:32)
[2019-11-11] MEDS: PROMETHAZINE 25 MG/ML, 1ML IM PRN (09:31)
[2019-11-11] MEDS: LACTULOSE 10 GM/15 ML UDC PO SCH (09:32)
[2019-11-11] MEDS: THIAMINE 100MG TABLET PO SCH ×2 (09:32→21:32)
[2019-11-11] MEDS: MIDODRINE 5 MG TABLET PO SCH ×3 (09:32→21:33)
[2019-11-11] MEDS: FOLIC ACID 1 MG TABLET PO SCH (09:32)
[2019-11-11 12:43] VITALS: BP 99/64
[2019-11-11 17:13] VITALS: BP 98/64
[2019-11-11 19:27] VITALS: BP 102/68
[2019-11-11 21:35] VITALS: BP 102/66
[2019-11-12 00:16] VITALS: BP 97/60
[2019-11-12] MEDS: OXYcodone IR 5MG TABLET PO PRN ×3 (05:15→18:11)
[2019-11-12] MEDS: ALBUMIN HUMAN 25% 100 ML IV SCH ×3 (05:15→20:21)
[2019-11-12] MEDS: PANTOPRAZOLE 40MG TABLET PO SCH ×2 (05:15→15:55)
[2019-11-12] MEDS: LACTOBACILLUS CHEW TABLET PO SCH ×4 (05:15→20:21)
[2019-11-12 05:55] LABS: ALANINE AMINOTRANSFERASE 40 U/L (12-78); ALBUMIN 3.1 g/dL (3.4-5.0); ANION GAP 14 mmol/L (5-15); CALCIUM 8.2 mg/dL (8.5-10.1); CHLORIDE 101 mmol/L (98-107)
[2019-11-12 06:07] LABS: ALKALINE PHOSPHATASE 159 U/L (45-117)
[2019-11-12 06:09] LABS: CREATININE 2.59 mg/dL (0.55-1.02); TOTAL PROTEIN 5.6 g/dL (6.4-8.2)
[2019-11-12 06:16] LABS: BILIRUBIN,TOTAL 35.1 mg/dL (0.2-1.0)
[2019-11-12 06:32] VITALS: BP 96/91
[2019-11-12] MEDS: FOLIC ACID 1 MG TABLET PO SCH (08:56)
[2019-11-12] MEDS: THIAMINE 100MG TABLET PO SCH ×2 (08:57→20:21)
[2019-11-12] MEDS: RIFAXIMIN 550 MG TABLET PO SCH ×2 (08:57→20:21)
[2019-11-12] MEDS: MIDODRINE 5 MG TABLET PO SCH ×3 (08:57→20:21)
[2019-11-12] MEDS: MULTIVITAMIN 1 TABLET PO SCH (08:57)
[2019-11-12] MEDS: LACTULOSE 10 GM/15 ML UDC PO SCH (08:57)
[2019-11-12] MEDS: POTASSIUM ACID PHOSPHATE 500 MG TABLET.SOL PO SCH ×2 (08:57→20:21)
[2019-11-12] MEDS ORDERED: POTASSIUM CHLORIDE 20 MEQ TAB.ER.PRT PO ONE (09:00)
[2019-11-12 12:19] VITALS: BP 104/69
[2019-11-12 12:41] LABS: CHLORIDE,URINE RANDOM 23 mmol/L; MICROSCOPIC INDICATED; POTASSIUM,URINE RANDOM 58 mmol/L; SODIUM,URINE RANDOM 6 mmol/L
[2019-11-12 19:07] VITALS: BP 103/68
[2019-11-13] MEDS: OXYcodone IR 5MG TABLET PO PRN ×4 (01:35→22:00)
[2019-11-13 01:45] VITALS: BP 95/59
[2019-11-13] MEDS: LACTOBACILLUS CHEW TABLET PO SCH ×4 (05:43→21:04)
[2019-11-13] MEDS: ALBUMIN HUMAN 25% 100 ML IV SCH ×3 (05:43→21:04)
[2019-11-13] MEDS: PANTOPRAZOLE 40MG TABLET PO SCH ×2 (05:44→16:00)
[2019-11-13] MEDS: PROMETHAZINE 25 MG/ML, 1ML IM PRN (06:04)
[2019-11-13 06:29] LABS: BASOPHILS % (AUTO) 1 % (0-1); EOSINOPHILS % (AUTO) 3 % (1-7); LYMPHOCYTES % (AUTO) 5 % (22-44); MEAN CORPUSCULAR HEMOGLOBIN 34.4 pg (27.0-34.8); MEAN CORPUSCULAR HGB CONC 34.3 g/dL (32.4-35.8); MEAN PLATELET VOLUME 7.9 fL (7.4-10.4); MONOCYTES % (AUTO) 13 % (2-9); NEUTROPHILS % (AUTO) 79 % (42-75); PLATELET COUNT 187 x10^3/uL (130-400); RED BLOOD COUNT 2.69 x10^6/uL (3.82-5.3); RED CELL DISTRIBUTION WIDTH 18.6 % (9.6-15.2)
[2019-11-13 06:30] LABS: ANION GAP 15 mmol/L (5-15); CALCIUM 8.1 mg/dL (8.5-10.1); CHLORIDE 103 mmol/L (98-107)
[2019-11-13 06:33] LABS: INTERNATIONAL NORMALIZED RATIO 1.65 (0.93-1.1); PROTHROMBIN TIME 17.1 Seconds (9.6-11.5)
[2019-11-13 06:36] LABS: CREATININE 2.27 mg/dL (0.55-1.02)
[2019-11-13 07:19] LABS: MD NO
[2019-11-13 07:45] VITALS: BP 105/69
[2019-11-13] MEDS ORDERED: MAGNESIUM SULFATE PMX 2GM/50ML 50 ML IV ONE (08:00)
[2019-11-13] MEDS: LACTULOSE 10 GM/15 ML UDC PO SCH (09:43)
[2019-11-13] MEDS: MULTIVITAMIN 1 TABLET PO SCH (09:43)
[2019-11-13] MEDS: POTASSIUM ACID PHOSPHATE 500 MG TABLET.SOL PO SCH ×2 (09:43→21:04)
[2019-11-13] MEDS: THIAMINE 100MG TABLET PO SCH ×2 (09:43→21:05)
[2019-11-13] MEDS: MIDODRINE 5 MG TABLET PO SCH ×3 (09:43→21:05)
[2019-11-13] MEDS: RIFAXIMIN 550 MG TABLET PO SCH ×2 (09:43→21:04)
[2019-11-13] MEDS: FOLIC ACID 1 MG TABLET PO SCH (09:44)
[2019-11-13] MEDS: POTASSIUM CHLORIDE 20 MEQ TAB.ER.PRT PO SCH ×3 (09:44→21:04)
[2019-11-13 12:31] VITALS: BP 95/62
[2019-11-13 19:36] VITALS: BP 100/62
[2019-11-14 01:31] VITALS: BP 99/61
[2019-11-14] MEDS: PANTOPRAZOLE 40MG TABLET PO SCH ×2 (05:09→16:33)
[2019-11-14] MEDS: ALBUMIN HUMAN 25% 100 ML IV SCH ×3 (05:09→21:09)
[2019-11-14] MEDS: LACTOBACILLUS CHEW TABLET PO SCH ×4 (05:10→21:00)
[2019-11-14] MEDS: OXYcodone IR 5MG TABLET PO PRN ×3 (05:20→21:08)
[2019-11-14 05:32] LABS: CHLORIDE 108 mmol/L (98-107)
[2019-11-14 05:49] LABS: ALANINE AMINOTRANSFERASE 34 U/L (12-78); ALBUMIN 4.3 g/dL (3.4-5.0); ALKALINE PHOSPHATASE 140 U/L (45-117); ANION GAP 12 mmol/L (5-15)
[2019-11-14 06:04] LABS: CREATININE 2.12 mg/dL (0.55-1.02)
[2019-11-14 06:05] LABS: BILIRUBIN,TOTAL 34.6 mg/dL (0.2-1.0)
[2019-11-14 06:35] VITALS: BP 99/62
[2019-11-14] MEDS: RIFAXIMIN 550 MG TABLET PO SCH ×2 (08:51→21:08)
[2019-11-14] MEDS: POTASSIUM CHLORIDE 20 MEQ TAB.ER.PRT PO SCH ×3 (08:51→21:08)
[2019-11-14] MEDS: LACTULOSE 10 GM/15 ML UDC PO SCH (08:51)
[2019-11-14] MEDS: MULTIVITAMIN 1 TABLET PO SCH (08:51)
[2019-11-14] MEDS: THIAMINE 100MG TABLET PO SCH ×2 (08:51→21:08)
[2019-11-14] MEDS: MIDODRINE 5 MG TABLET PO SCH ×3 (08:51→21:09)
[2019-11-14] MEDS: POTASSIUM ACID PHOSPHATE 500 MG TABLET.SOL PO SCH ×2 (08:51→21:08)
[2019-11-14] MEDS: FOLIC ACID 1 MG TABLET PO SCH (08:51)
[2019-11-14] MEDS: SODIUM BICARBONATE 650 MG TABLET PO SCH ×2 (08:56→21:07)
[2019-11-14] MEDS: PROMETHAZINE 25 MG/ML, 1ML IM PRN (09:16)
[2019-11-14 12:31] VITALS: BP 113/76
[2019-11-14 20:27] VITALS: BP 113/73
[2019-11-15 00:51] VITALS: BP 111/71
[2019-11-15 04:15] LABS: ANION GAP 10 mmol/L (5-15); CALCIUM 8.7 mg/dL (8.5-10.1); CHLORIDE 112 mmol/L (98-107)
[2019-11-15 04:30] LABS: CREATININE 1.94 mg/dL (0.55-1.02)
[2019-11-15] MEDS: PANTOPRAZOLE 40MG TABLET PO SCH (06:43)
[2019-11-15] MEDS: LACTOBACILLUS CHEW TABLET PO SCH ×3 (06:43→16:39)
[2019-11-15] MEDS: ALBUMIN HUMAN 25% 100 ML IV SCH ×2 (06:43→13:33)
[2019-11-15] MEDS: OXYcodone IR 5MG TABLET PO PRN ×2 (06:43→13:33)
[2019-11-15 07:09] VITALS: BP 98/63
[2019-11-15] MEDS ORDERED: PANTOPRAZOLE 40MG TABLET PO SCH (09:00)
[2019-11-15] MEDS: POTASSIUM ACID PHOSPHATE 500 MG TABLET.SOL PO SCH (09:24)
[2019-11-15] MEDS: RIFAXIMIN 550 MG TABLET PO SCH (09:24)
[2019-11-15] MEDS: THIAMINE 100MG TABLET PO SCH (09:25)
[2019-11-15] MEDS: MIDODRINE 5 MG TABLET PO SCH ×2 (09:26→16:39)
[2019-11-15] MEDS: SODIUM BICARBONATE 650 MG TABLET PO SCH (09:26)
[2019-11-15] MEDS: LACTULOSE 10 GM/15 ML UDC PO SCH (09:26)
[2019-11-15] MEDS: MULTIVITAMIN 1 TABLET PO SCH (09:27)
[2019-11-15] MEDS: FOLIC ACID 1 MG TABLET PO SCH (09:27)
[2019-11-15] MEDS ORDERED: ACID1TAB7 PO (09:44)
[2019-11-15] MEDS ORDERED: THIA100T67 PO (09:44)
[2019-11-15] MEDS ORDERED: MIDO5TAB9 PO (09:44)
[2019-11-15] MEDS ORDERED: LACT10SO24 PO (09:44)
[2019-11-15] MEDS ORDERED: MULT-449 PO (09:44)
[2019-11-15] MEDS ORDERED: RIFA550T4 PO (09:44)
[2019-11-15] MEDS ORDERED: POTA500T PO (09:44)
[2019-11-15] MEDS ORDERED: SODI650T PO (09:44)
[2019-11-15] MEDS ORDERED: PANT40TA6 PO (09:44)
[2019-11-15 12:16] VITALS: BP 95/60
== END 2019-11-15 17:30 | disposition home or self-care (01) | DRG 720 ==
LOC: ED 02:13 → EDIP 02:31 → CCU 05:41 → 5SO 10-26 16:29 → 4WST 10-30 06:25 → 4NW 11-02 15:37 → 4WST 11-05 10:36
PROVIDERS: ADMIT Family Medicine; ATTEND Internal Medicine
PROC: 0W9G3ZZ Drainage of Peritoneal Cavity, Percutaneous Approach (ICD-10-PCS; principal; 2019-10-25)
PROC: 30233N1 Transfusion of Nonautologous Red Blood Cells into Peripheral Vein, Percutaneous Approach (ICD-10-PCS; 2019-10-25)
PROC: 0T9B70Z Drainage of Bladder with Drainage Device, Via Natural or Artificial Opening (ICD-10-PCS; 2019-10-25)
PROC: 0W9G3ZZ Drainage of Peritoneal Cavity, Percutaneous Approach (ICD-10-PCS; 2019-10-27)
PROC: 0W9G3ZZ Drainage of Peritoneal Cavity, Percutaneous Approach (ICD-10-PCS; 2019-11-05)
DX: A41.9 Sepsis, unspecified organism (principal); D62 Acute posthemorrhagic anemia; D68.9 Coagulation defect, unspecified; D69.6 Thrombocytopenia, unspecified; D75.89 Other specified diseases of blood and blood-forming organs; E83.39 Other disorders of phosphorus metabolism; E83.42 Hypomagnesemia; E87.1 Hypo-osmolality and hyponatremia; E87.2 Acidosis; E87.6 Hypokalemia; F10.229 Alcohol dependence with intoxication, unspecified; F10.239 Alcohol dependence with withdrawal, unspecified; F17.210 Nicotine dependence, cigarettes, uncomplicated; K70.11 Alcoholic hepatitis with ascites; K70.31 Alcoholic cirrhosis of liver with ascites; K70.40 Alcoholic hepatic failure without coma; K76.6 Portal hypertension; K85.90 Acute pancreatitis without necrosis or infection, unspecified; N93.8 Other specified abnormal uterine and vaginal bleeding; K76.7 Hepatorenal syndrome; N17.9 Acute kidney failure, unspecified; N30.00 Acute cystitis without hematuria; R65.20 Severe sepsis without septic shock
CPT/HCPCS: J3490 ×3; 36415; 36430; 49083; 70450; 71045; 74177; 76700; 76705; 80048; 80053; 80074; 80307; 81001; 81025; 82042; 82140; 82247; 82248; 82306; 82436; 83540; 83550; 83605; 83690; 83735; 83970; 84100; 84132; 84133; 84145; 84300; 84540; 85014; 85018; 85025; 85384; 85610; 85730; 86850; 86900; 86923; 87040; 87070; 87081; 87086; 87205; 88112; 88305; 89051; 93005; 96365; 96366; 96367; 96375; G0378; J0610; J0696; J2354; J2543; J2550; J3370; J3411; J3475; J3480; P9047; C9113; J1050; J2060; J7030; J7040; J7050; P9016